=== PATIENT | male | born 1985 | race Caucasian/White ===

== ENCOUNTER 2018-03-27 00:44 | Emergency (ER) | payer SELFPAY ==
[~2018-03-27] VITALS: Ht 177.8 cm; Wt 65.8 kg
--- NOTE | 2018-03-27 01:05 | NUR ---
Pt ambulated in ER with stable gait with the c/o lower abdominal pain radiating to groin x 3 days. Pt denies dysuria and N/V/D. Safe environment implemented.
[2018-03-27 01:29] LABS: *BILIRUBIN,URIN NEGATIVE (NEGATIVE); *BLOOD, URINE Trace-intact (NEGATIVE); *CLARITY,URINE CLEAR (CLEAR); *COLOR,URINE YELLOW (YELLOW); *KETONES,URINE TRACE (NEGATIVE); LEUKOCYTE ESTERASE ,URINE NEGATIVE (NEGATIVE); NITRITE, URINE NEGATIVE (NEGATIVE); PH,URINE 7.5 (5.0-8.0); UGLUCOSE NEGATIVE (NEGATIVE)
[2018-03-27 01:39] LABS: BACTERIA,URINE NONE SEEN /HPF (NONE SEEN); MUCUS,URINE MODERATE /LPF (0-FEW); SQUAMOUS EPITHELIAL CELL,UR FEW /HPF (NONE SEEN); WBC,URINE 0-3 /HPF (0-3)
[2018-03-27] MEDS ORDERED: LIDOCAINE HCL 1% 20 ML VIAL ONE (01:41)
[2018-03-27] MEDS ORDERED: CEFTRIAXONE 500 MG VIAL ONE (01:42)
[2018-03-27] MEDS ORDERED: CEFTRIAXONE 500 MG VIAL IM ONE (01:45)
--- NOTE | 2018-03-27 01:47 | NUR ---
Patient discharged to home in stable conditon. Written and verbal after care instructions given. Patient verbalizes understanding of instructions. Patient ambulated out of ER with stable gait and in no distress. All belongings taken.
[2018-03-27 01:48] VITALS: BP 114/84
== END 2018-03-27 01:49 | disposition home or self-care (01) ==
LOC: ER 00:46
DX: N34.2 Other urethritis (principal); Z88.1 Allergy status to other antibiotic agents; Z88.8 Allergy status to other drugs, medicaments and biological substances
CPT/HCPCS: 81001; 96372; 99283; J0696; J3490; A4663